=== PATIENT | male | born 1945 | race Caucasian/White ===

== ENCOUNTER 2024-05-22 11:36 | Outpatient (CLI) | payer MEDICARE, OTHER, SELFPAY ==
--- NOTE | ~2024-05-22 | PE_ITS ---
EXAMINATION: PET_PETPSMAST_PT DATE: 05/22/2024 13:59 INDICATION: Prostate cancer TECHNIQUE: 4.801 mCi of Illucix Ga-[id number]) was administered i.v. Low dose computed tamica graphy (CT) images were acquired from the base of the brain to the base of the brain to the proximal thighs for attenuation correction and anatomic localization. Positron emission tomography (PET) image s were acquired in the same distribution beginning 87 minutes after injection. Images including fused PET/CT images were reconstructed in axial, coronal, and sagittal planes. Automated exposure control technique was employed. The dose-length product was 1069.79mGy-cm. COMPARISON: None FINDINGS: Head/neck: Typical pattern of symmetric physiologic increased activity in the lacrimal, parotid and submandibula r glands as well as along the mucosa of the nasal and oral cavities, pharynx and hypopharynx. No path ologically enlarged cervical lymphadenopathy or suspicious foci of increased uptake in the visualized head or neck. Chest: Tiny calcified left upper lobe nodule consistent with old granulomatous disease. 8 mm pleural-based n odule without PSMA activity in the right lower lobe. Heart size is normal. No pericardial effusion. A ortic valve calcific location. Thoracic aorta is normal in caliber. No pathologically enlarged or PSM A avid lymphadenopathy. Abdomen/pelvis/proximal thighs: Physiologic renal accumulation and excretion of activity in the kidneys, bladder and along portions o f ureters. Normal degree and slightly heterogenous pattern of increased uptake throughout the liver a nd spleen without radiologic correlate or dominant PSMA avid lesion. The gallbladder, pancreas and bi lateral adrenal glands are normal. Moderate uptake scattered throughout the bowels with typical duode nal and proximal jejunal predominance and without radiologic correlate, also likely physiologic. Norm al appendix. Prostatomegaly with approximately 1 cm focus of moderate increased uptake with maximal s evere 14.5 at the right posterior inferior prostate. No other abnormal foci of increased uptake or pa thologically enlarged lymphadenopathy in the abdomen, pelvis or proximal thighs. Musculoskeletal: Severe cervical and lumbosacral spondylosis with mild to moderate intervening thoracic and lumbar spo ndylosis. No suspicious lytic, blastic or PET PSMA avid bone lesions. IMPRESSION: 1. Single approximately 1 cm focus of moderate increased PSV may uptake at the left posterior inferio r prostate consistent with primary prostate cancer. No evident metastatic disease. 2. 8 mm pleural-based nodule in the right lower lobe. Recommend 6-12 month follow-up low-dose noncont rast chest CT. Reviewed, dictated and finalized at location [facility] IMPRESSION: 1. Single approximately 1 cm focus of moderate increased PSV may uptake at the left posterior inferior prostate consistent with primary prostate cancer. No ev ident metastatic disease. 2. 8 mm pleural-based nodule in the right lower lobe. Recommend 6-12 month foll ow-up low-dose noncontrast chest CT.
== END 2024-05-22 11:37 | disposition home or self-care (01) ==
PROVIDERS: PCP Physician Assistant; Visit Provider Urology
DX: C61 Malignant neoplasm of prostate (principal); R91.8 Other nonspecific abnormal finding of lung field
CPT/HCPCS: 78815; A9596